=== PATIENT | male | born 1995 ===

== ENCOUNTER 2020-04-05 15:58 | Emergency (ER) | payer SELFPAY ==
[2020-04-05 16:35] LABS: Basophils % (Auto) 0.2 % (0.0-1.8); Eosinophils % (Auto) 0.1 % (0.0-4.3); Hematocrit 45.7 % (35.5-45.6); Hemoglobin 15.5 gm/dl (11.8-15.2); Lymphocytes # (Auto) 1.2 K/mm3 (1.2-5.4); Lymphocytes % (Auto) 9.9 % (13.4-35.0); Mean Corpuscular HGB Conc 34 % (32-34); Mean Corpuscular Volume 96 fl (84-94); Monocytes # (Auto) 0.8 K/mm3 (0.0-0.8); Monocytes % (Auto) 6.5 % (0.0-7.3); Platelet Count 230 K/mm3 (140-440); Red Blood Count 4.77 M/mm3 (3.65-5.03); Red Cell Distribution Width 12.4 % (13.2-15.2)
[2020-04-05 16:42] LABS: Alanine Aminotransferase 12 units/L (7-56); Albumin 4.5 g/dL (3.9-5); BUN/Creatinine Ratio 13; Blood Urea Nitrogen 13 mg/dL (9-20); Calcium 9.6 mg/dL (8.4-10.2); Hemolysis Index 9
[2020-04-05 17:16] LABS: Bilirubin,Urine NEG (Negative); Blood,Urine LG (Negative); Color,Urine Yellow (Yellow); Mucus,Urine 3+ /HPF; Protein,Urine <15 mg/dL mg/dL (Negative)
[2020-04-05] MEDS ORDERED: KETOROLAC 30 MG/1 ML INJ IM ONE (18:02)
--- NOTE | 2020-04-05 18:04 | Emergency Department Report ---
ED Abdominal Pain HPI - General Chief Complaint: Abdominal Pain Stated Complaint: LEFT SIDE PAIN Source: patient Mode of arrival: Ambulatory Limitations: No Limitations - History of Present Illness Initial Comments: 25-year-old male presents to the emergency room complaining of left lower quadrant pain since this morning. Patient states that is throbbing and stabbing crampy is constant but will come in waves. Patient states what alleviates his pain is no movement and what aggravates his pain is movement. Patient denies any pain in the testicles denies any penile discharge denies any hematuria. Patient reports he had vomiting x3 and mild nausea. Patient denies any blood in his stool no diarrhea. Last BM was normal yesterday. Patient reports no past medical history currently takes no medications on a daily basis and has no known drug allergies. MD Complaint: abdominal pain, flank pain -: This morning Location: LLQ Radiation: none Migration to: no migration Severity scale (0 -10): 4 Quality: cramping, stabbing, sharp Consistency: constant Improves With: rest Worsens With: movement Associated Symptoms: nausea, vomiting. denies: diarrhea, fever, chills, constipation, dysuria, hematemesis, hematochezia, melena, hematuria, anorexia, syncope - Related Data Allergies Allergy/AdvReac Type Severity Reaction Status Date / Time No Known Allergies Allergy Unverified 04/05/20 16:02 ED Review of Systems ROS: Stated complaint: LEFT SIDE PAIN Other details as noted in HPI Comment: All other systems reviewed and negative ED Past Medical Hx - Past Medical History Previous Medical History?: No - Surgical History Past Surgical History?: No - Social History Smoking Status: Current Every Day Smoker Substance Use Type: None ED Physical Exam - General Limitations: No Limitations General appearance: alert, in no apparent distress - Head Head exam: Present: atraumatic, normocephalic - Eye Eye exam: Present: normal appearance - ENT ENT exam: Present: mucous membranes moist - Neck Neck exam: Present: normal inspection, full ROM - Respiratory Respiratory exam: Present: normal lung sounds bilaterally. Absent: respiratory distress - Cardiovascular Cardiovascular Exam: Present: regular rate, normal rhythm. Absent: systolic murmur, diastolic murmur, rubs, gallop - GI/Abdominal GI/Abdominal exam: Present: soft, tenderness (Left lower quadrant). Absent: distended - Extremities Exam Extremities exam: Present: normal inspection, full ROM - Back Exam Back exam: Present: normal inspection. Absent: tenderness, CVA tenderness (R), CVA tenderness (L) - Neurological Exam Neurological exam: Present: alert, oriented X3 - Psychiatric Psychiatric exam: Present: normal affect, normal mood - Skin Skin exam: Present: warm, dry, intact, normal color. Absent: rash ED Course Vital Signs 04/05/20 15:59 Temperature 98.8 F Pulse Rate 74 Respiratory 16 Rate Blood Pressure 121/70 O2 Sat by Pulse 100 Oximetry ED Medical Decision Making - Lab Data Result diagrams: 04/05/20 16:09 04/05/20 16:09 - Radiology Data Radiology results: report reviewed Print Report Referring Physician:JOSE HATCHPatient Name:MALCOM HOWEPatient ID:[id number] of :[id number]:MaleAccession:[id number] Date:[id number] Status:[place] [address] Cat Scan Report Signed Patient: MALCOM HOWE JR MR#: [id number] : 1995 Acct:[id number] Age/Sex: 25 / M ADM Date: 04/05/20 Loc: ED Attending Dr: Ordering Physician: CAN DOSS Date of Service: 04/05/20 Procedure(s): CT abdomen pelvis wo con Accession Number(s): [id number] cc: CAN DOSS CT abdomen pelvis wo con INDICATION / CLINICAL INFORMATION: MAIN: Left lower quadrant pain with hematuria STARTED THIS MORNING. TECHNIQUE: All CT scans at this location are performed using CT dose reduction for ALARA by means of automated exposure control. COMPARISON: None available. FINDINGS: Limited lower thoracic images are negative. ABDOMEN: The gallbladder, liver, spleen and pancreas are normal. No demonstrated urinary calculi. Note is made of slight dilatation of the left renal pelvis and left ureter. The right kidney is normal. No retroperitoneal adenopathy. No adrenal masses. The small bowel is normal. Pelvis: A normal retrocecal appendix is identified. No acute inflammatory changes are seen in the pelvis. No opaque calculi are seen in the urinary bladder. No acute skeletal abnormality. Small developmental deformity is noted in the anterior L4 vertebral body. IMPRESSION: 1. No acute findings in the abdomen or pelvis. 2. Note is made of slight dilatation of the left ureter without demonstrated opaque obstructing calculus. Signer Name: Wally Galan MD Signed: 04/05/2020 6:41 PM Workstation Name: [id number] Transcribed By: SURENDRA Dictated By: Wally Galan MD Electronically Authenticated By: Wally Galan MD Signed Date/Time: 04/05/201840 DD/ 37 TD/TT: - Medical Decision Making 25-year-old male presents to the emergency room complaining of left lo wer quadrant pain since this morning. Patient states that is throbbing and stabbing crampy is constant but will come in waves. Patient states what alleviates his pain is no movement and what aggravates his pain is movement. Patient denies any pain in the testicles denies any penile discharge denies any hematuria. Patient reports he had vomiting x3 and mild nausea. Patient denies any blood in his stool no diarrhea. Last BM was normal yesterday. Patient reports no past medical history currently takes no medications on a daily basis and has no known drug allergies. Patient is given order for Toradol [address] without contrast of abdomen pelvis - Differential Diagnosis Diverticulitis, kidney stone Critical care attestation.: If time is entered above; I have spent that time in minutes in the direct care of this critically ill patient, excluding procedure time. ED Disposition Clinical Impression: Left lower quadrant abdominal pain Disposition: DC-01 TO HOME OR SELFCARE Is pt being admited?: No Does the pt Need Aspirin: No Condition: Stable Additional Instructions: CT scan is negative for any acute acute findings it does show that she may have a little bit of swelling of your left ureter which could be from a kidney stone that has passed. Please take ibuprofen or Tylenol for pain management. Increase your fluid intake. Follow-up with your primary care provider. Referrals: YOLANDA CORONADO MD [Primary Care Provider] - 3-5 Days WENDY SUN MD [Staff Physician] - 3-5 Days Forms: Work/School Release Form(ED)
--- NOTE | 2020-04-05 18:46 | Cat Scan Report ---
CT abdomen pelvis wo con INDICATION / CLINICAL INFORMATION: MAIN: Left lower quadrant pain with hematuria STARTED THIS MORNING. TECHNIQUE: All CT scans at this location are performed using CT dose reduction for ALARA by means of automated e xposure control. COMPARISON: None available. FINDINGS: Limited lower thoracic images are negative. ABDOMEN: The gallbladder, liver, spleen and pancreas are normal. No demonstrated urinary calculi. Note is made of slight dilatation of the left renal pelvis and left ureter. The right kidney is normal. No retroperitoneal adenopathy. No adrenal masses. The small bowel is normal. Pelvis: A normal retrocecal appendix is identified. No acute inflammatory changes are seen in the pelvis. No opaque calculi are seen in the urinary bladder. No acute skeletal abnormality. Small developmental deformity is noted in the anterior L4 vertebral body. IMPRESSION: 1. No acute findings in the abdomen or pelvis. 2. Note is made of slight dilatation of the left ureter without demonstrated opaque obstructing calcu debbie. Signer Name: Wally Galan MD Signed: 04/05/2020 6:41 PM Workstation Name: [id number]
[2020-04-05 19:36] VITALS: BP 138/87
== END 2020-04-05 19:35 | disposition home or self-care (01) ==
LOC: ED 15:58
DX: R10.32 Left lower quadrant pain (principal); R11.2 Nausea with vomiting, unspecified
CPT/HCPCS: 36415; 74176; 80053; 81001; 85025; 96372; 99284; J1885